=== PATIENT | male | born 2000 | race Caucasian/White ===

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

== ENCOUNTER 2021-06-18 12:06 | Emergency (ER) | payer OTHER ==
[~2021-06-18] VITALS: Ht 187.9 cm; Wt 90.7 kg
[~2021-06-18 12:06] MED LIST changes: +IBUPROFEN600 MG PO
[2021-06-18] MEDS ORDERED: SEPTDS PO (13:09)
== END 2021-06-18 14:27 | disposition home or self-care (01) ==
LOC: ED 12:06
DX: S01.81XA Laceration without foreign body of other part of head, initial encounter (principal); V19.88XA Pedal cyclist (driver) (passenger) injured in other specified transport accidents, initial encounter; Y93.89 Activity, other specified; Y92.89 Other specified places as the place of occurrence of the external cause; Y99.8 Other external cause status

== ENCOUNTER 2022-01-05 09:20 | Emergency (ER) | payer SELFPAY ==
[~2022-01-05] VITALS: Wt 81.6 kg
[~2022-01-05 09:20] MED LIST changes: +SEPTDS PO
== END 2022-01-05 12:12 | disposition home or self-care (01) ==
LOC: ED 09:20
DX: S89.91XA Unspecified injury of right lower leg, initial encounter (principal); Z88.0 Allergy status to penicillin; X50.0XXA Overexertion from strenuous movement or load, initial encounter; Y93.89 Activity, other specified; Y92.89 Other specified places as the place of occurrence of the external cause; Y99.8 Other external cause status